=== PATIENT | male | born 1970 | race Two or more races ===

== ENCOUNTER 2016-09-23 05:21 | Inpatient (IN) | payer OTHER ==
--- NOTE | 2016-09-21 13:21 | PREOPHP ---
DATE OF ADMISSION: 09/23/2016 DATE OF SERVICE: 09/21/2016 PREOPERATIVE INTERNAL MEDICINE CONSULTATION MEDICAL HISTORY AND PHYSICAL The patient to have surgery with Dr. Obi Fuller on 09/23/2016. CONSULTATION REQUESTED: Dr. Obi Fuller for medical evaluation and clearance of a 45-year-old gentleman about to undergo surgery on his lumbar spine. Thank you, Dr. Fuller, for allowing us to participate in the care of this patient. Leander Wolf, a 45-year-old gentleman, history of back injury, currently being admitted for correction of the above. In terms of his past medical history, surgically, has had a left inguinal hernia repair, fractured his right ankle, has had no medical hospitalizations, takes no chronic medications other than currently pain medications. ALLERGIES: HE IS NOT ALLERGIC TO ANY MEDICATIONS. GENERAL HEALTH: Has been good. SOCIAL HISTORY: The patient is , has 2 daughters. He does not smoke. Alcohol socially. Does drink coffee, is employed and usually has no difficulty sleeping at night. FAMILY HISTORY: Father at age 90 of a car accident and old age. Mother 82 diabetic and alive and doing relatively well. Two siblings are healthy. There is family history of diabetes and hypertension. He knows of no heart, cancer or strokes. REVIEW OF SYSTEMS HEENT: Periodic headaches. CARDIORESPIRATORY: Denies any chest pain or shortness of breath. GASTROINTESTINAL: No melena or hematemesis. GENITOURINARY: No urgency, frequency. MUSCULOSKELETAL: Positive for back pain with radicular pain symptoms down the left side. NEUROPSYCHIATRIC: Unremarkable. GENERAL HEALTH: As above. PHYSICAL EXAMINATION: VITAL SIGNS: The patient's blood pressure was 118/60, pulse was 68 and regular , respirations were 18, temperature 98.5, height 5 foot 5 and 3/4 inches, weight 157 pounds. GENERAL: The patient was noted to be a well-developed, well-nourished male, alert and cooperative, in no apparent acute distress, oriented to time, place, and person. HEAD, EARS, EYES, NOSE AND THROAT: Head was atraumatic. Eyes: Pupils were equal, reactive to light and accommodation. Fundi were benign. Tympanic membranes were unremarkable. Nose was negative. Mouth was unremarkable. Fair oral hygiene was present. NECK: Supple without any rigidity. Trachea was midline. Thyroid was unremarkable. Neck veins were flat. Carotid pulses were equal. No bruits were heard. BACK: Unremarkable other than tenderness in the lower back. CHEST: Symmetrical. BREASTS AND AXILLARY: Did not reveal any masses. LUNGS: Clear to percussion and auscultation. HEART: PMI is fifth intercostal space at the midclavicular line. Regular sinus rhythm was noted. No significant murmurs, rubs, or gallops being elicited. ABDOMEN: Soft, good bowel sounds were noted. No significant organomegaly, masses, or tenderness. Scar from prior surgery being noted. GENITALIA: Normal male external genitalia. RECTAL AND PROSTATIC: Per PCP. EXTREMITIES: Did not reveal any clubbing, edema or cyanosis. Peripheral pulses were physiologic. SKIN: Moist and warm without any eruptions. No gross lymphadenopathy was noted. NEUROLOGIC: Grossly intact. IMPRESSION 1. Lumbar disk disease with herniation of disk, L4-L5. 2. Stable health. LABORATORY DATA: Review of laboratory and other data revealed the following: The patient's chemistry panel including electrolytes, glucose, BUN, and liver function tests were normal. CBC, UA, PT, PTT were normal as well. The patient' s EKG revealed some nonspecific changes, no acute changes being noted, and the patient's chest x-ray was within normal limits. DISCUSSION: Dr. Fuller, I see no contraindication in this patient undergoing current proposed surgery under desired form of anesthesia and feel he is a suitable candidate at this particular point in time and will follow him along with you during his stay at [facility]. . Thank you again, Dr. Fuller, for allowing us to participate in the care of this patient. Dictated By: ORLANDO HENDERSON MD with carmine during h SS/NTS Conf#: [id number] DID#: [id number] CC: OBI FULLER MD; ORLANDO HENDERSON MD;*EndCC* MTDD
[2016-09-23] VITALS (19 sets, daily range): BP systolic 112–137; BP diastolic 55–75; PULSE 56–94; RESP 15–20; Ht 165.1 cm; Wt 71.0 kg
[~2016-09-23] VITALS: Ht 165.1 cm; Wt 71.0 kg
[2016-09-23] MEDS ORDERED: SUCCINYLCHOLINE CHLORIDE 100 MG/5 ML SYG IV ONE (06:47)
[2016-09-23] MEDS ORDERED: PROPOFOL 20 ML ONE (06:47)
[2016-09-23] MEDS ORDERED: MIDAZOLAM 1 MG/ML 2 ML INJ ONE (06:47)
[2016-09-23] MEDS ORDERED: CEFAZOLIN 1 GM INJ ONE (06:48)
[2016-09-23] MEDS ORDERED: LIDOCAINE 1% (MDV) 20 ML INJ ONE (06:52)
[2016-09-23] MEDS ORDERED: CA CHLORIDE 10% 10 ML SYRINGE ONE (06:53)
[2016-09-23] MEDS ORDERED: SURGIFOAM POWDER 1 GM KIT ONE (06:53)
[2016-09-23] MEDS ORDERED: BUPIVACAINE 0.25%/EPI (SDV) 30 ML INJ ONE (06:53)
[2016-09-23] MEDS ORDERED: POLYMYXIN/BACITRACIN 1L IRRIG ONE (06:53)
[2016-09-23] MEDS ORDERED: BUPIVACAINE 0.25% (MPF) 10 ML 10 ML VIAL ONE (06:53)
[2016-09-23] MEDS ORDERED: THROMBIN 5000 UNIT VIAL ONE (06:53)
[2016-09-23] MEDS ORDERED: NEOSTIGMINE 3 MG/3 ML SYRINGE ONE (07:00)
[2016-09-23] MEDS ORDERED: GLYCOPYRROLATE 1 MG INJ ONE (07:00)
[2016-09-23] MEDS ORDERED: ROCURONIUM 50 MG INJ ONE (07:00)
[2016-09-23] MEDS ORDERED: EPHEDrine SULFATE 50 MG/5 ML SYG ONE (07:00)
--- NOTE | 2016-09-23 07:02 | HPN ---
Date/Time of Note Date/Time of Note DATE: 09/23/16 TIME: 07:01 Interval H&P Admission Note Pt. seen H&P reviewed: No system changes BELLE FULLER MD Sep 23, 2016 07:02
[2016-09-23] MEDS ORDERED: CEFAZOLIN 2 GM/50 ML (PMX) 50 ML IVPB SCH (07:30)
[2016-09-23] MEDS ORDERED: LACTATED RINGER'S 1,000 ML IV* SCH (07:30)
[2016-09-23] MEDS ORDERED: THROMBIN 5000 UNIT VIAL TOP ONE (07:35)
[2016-09-23] MEDS ORDERED: BUPIVACAINE 0.25%/EPI (SDV) 30 ML INJ INJ ONE (07:35)
[2016-09-23] MEDS ORDERED: POLYMYXIN/BACITRACIN 1L IRRIG IRR ONE (07:35)
[2016-09-23] MEDS ORDERED: PHENYLephrine (100 MCG/ML) 5ML SYG ONE (07:39)
[2016-09-23] MEDS ORDERED: DEXAMETHASONE 4 MG/ML 1 ML INJ ONE (08:10)
[2016-09-23] MEDS ORDERED: ONDANSETRON 4 MG INJ ONE (08:10)
[2016-09-23] MEDS ORDERED: FAMOTIDINE 20 MG INJ ONE (08:10)
[2016-09-23] MEDS ORDERED: MEPERIDINE 25 MG INJ IV PRN (08:30)
[2016-09-23] MEDS ORDERED: PROCHLORPERAZINE 10 MG INJ IV PRN (08:30)
[2016-09-23] MEDS ORDERED: HYDROmorphONE (0.2 MG/ML) 10ML SYG IV PRN ×2 (08:30)
[2016-09-23] MEDS ORDERED: FENTAnyl 50 MCG/ML VIAL ONE (08:45)
[2016-09-23] MEDS ORDERED: AL HYDROX/MG HYDROX/SIMETH 30 ML CUP PO PRN (09:30)
[2016-09-23] MEDS ORDERED: NALOXONE (0.4 MG/ML) INJ IV PRN (09:30)
[2016-09-23] MEDS ORDERED: HYDROmorphONE 1 MG/ML SYG IV PRN (09:30)
[2016-09-23] MEDS ORDERED: CEPASTAT LOZENGE MT PRN (09:30)
[2016-09-23] MEDS ORDERED: HYDROmorphONE 0.2 MG/ML PCA IV SCH (09:30)
[2016-09-23] MEDS ORDERED: BISACODYL 10 MG SUPP PR PRN (09:30)
[2016-09-23] MEDS ORDERED: ONDANSETRON 4 MG INJ IV PRN (09:30)
[2016-09-23] MEDS ORDERED: ACETAMINOPHEN 325 MG TAB PO PRN (09:30)
[2016-09-23] MEDS ORDERED: ZOLPIDEM 5 MG TAB PO PRN (09:30)
[2016-09-23] MEDS ORDERED: CARISOPRODOL 350 MG TAB PO PRN (09:30)
[2016-09-23] MEDS ORDERED: DIPHENHYDRAMINE 50 MG INJ IV PRN (09:30)
--- NOTE | 2016-09-23 10:17 | OPR ---
DATE OF OPERATION: 09/23/2016 PREOPERATIVE DIAGNOSES: 1. L4 to L5 stenosis with instability. 2. Central herniation L4 to L5. 3. Left radiculopathy. POSTOPERATIVE DIAGNOSES: 1. L4 to L5 stenosis with instability. 2. Central herniation L4 to L5. 3. Left radiculopathy. PROCEDURE PERFORMED: 1. Central decompressive laminectomy at L4 to L5 with decompression of L4 and L5 nerve roots for st enosis. 2. Placement of posterior interlaminar stabilization device. 3. L4 to L5 central diskectomy. 4. Use of operative microscope. 5. Use of C-arm fluoroscopy with interpretation without radiologist present. 6. Intraoperative neuromonitoring (2 hours). 7. Epidural injection via catheter. IMPLANTS: Coflex 12 mm. PRIMARY SURGEON: Obi Yap MD MARKETING PERFORMANCE ANALYST: VÍCTOR Glasgow NEED FOR CARRIER BLOWER: During this spinal surgical procedure, my family law legal assistant was used to retrac t and protect the spinal nerves and dural sac. My family law legal assistant also employed the suction catheters to evacuate blood from the surgical field to improve visualization of the neural structures. The ejrrod tant was medically necessary to facilitate the completion of the surgery in a safe and expeditious maye. State of [place] regulations, as well as hospital bylaws, preclude the use of non-license d health care personnel, such as operating room technicians, to perform these functions. FINDINGS: Neuromonitoring at the start of the case revealed bilateral L4 amplitude down 10%, left L 5 down 40%, right L5 down 50%, bilateral S1 down 40%. At the end of the case, L4 and L5 signals ret urned to normal. S1 signals remained down 30% at the end of the case bilaterally. The patient had instability at L4 to L5. ESTIMATED BLOOD LOSS: 30 mL. DRAINS: None. SPECIMENS: L4 to L5 disk was sent to pathology. COMPLICATIONS OF PROCEDURES: None. ANESTHESIOLOGIST: Parker Calvillo DO ANESTHESIA: General. INDICATIONS FOR PROCEDURE: This is a 45-year-old gentleman with back pain as well as left leg radic ulopathy. He failed nonoperative measures, therefore I recommended proceeding with the above-mentio kathya surgery. Preoperatively discussed risks, benefits, and alternatives. He understood and wished to proceed. DESCRIPTION OF PROCEDURE IN DETAIL: The patient was identified in the preoperative holding area, [facility], taken to the operating room, where he was successfully placed under general an esthesia by Dr. Calvillo. Neuromonitoring leads were placed, sequential compressive devices were ap plied. Neuromonitoring was utilized during the procedure for 2 hours to include SSEP, MEP, and EMG. Start time was 7:30 a.m., closure time was 9:30 a.m. The patient was placed on the operative tabl e in prone position over a Myles frame. All bony prominences were well padded. Back was prepped a nd draped in usual sterile fashion. Spinal needles were placed and lateral localizing films obtaine d to confirm the correct levels. Once this was confirmed, I injected the paraspinal musculature wit h 0.25% Marcaine and epinephrine. Incision was then made over the L4 to L5 level. Incision was taken down to the dorsal fascia, which was incised with Bovie cautery. I then subperiosteally dissected the L4 and L5 lamina bilaterally. Once this was done, Gokul retractors were placed. I placed a Brandin at the L4 to L5 interspin ous area and lateral films obtained to confirm the correct levels. The patient had what appeared to be an incompetent L4 to L5 interspinous ligament. He had instability at this level. Central decom pression was performed at the L4 to L5 level and I decompressed the L4 and L5 nerve roots bilaterall y and removed the ligamentum flavum centrally to decompress the central canal. Microscope was then brought in and my family law legal assistant retracted neural elements medially to midline while I made a central radha ulotomy on the left side to remove extruded fragments. This herniation was adding to the stenosis a nd was done in order to further decompress the stenosis. Once the decompression was completed, all nerve signals returned to normal. Microscope was taken off the field. The Myles frame was let dionne n. I then placed various trials and chose the 12 mm height for the Coflex. I then took the final impla nt which I impacted under C-arm imaging remaining just dorsal to the dura. I then clamped down onto the spinous process of L4 and L5. Once this was done, I took final AP and lateral images and I was happy with the placement of the posterior interlaminar stabilization device. I then irrigated the wound. Valsalva maneuver was performed and there was no leak of CSF. I passed an epidural catheter through which I injected 100 mcg of fentanyl, and the catheter was removed. The anesthesiologist d rew peripheral blood, which was spun using the [employer]an device, then took the platelet-poor plasma a nd mixed this with thrombin and injected it over the dura for hemostatic purposes. I then removed the retractor and closed the fascia with a #1 Vicryl stitch. I then closed subcutane ous tissue with a 2-0 Vicryl stitch. A 4-0 Monocryl closure was then performed. Dermabond was then applied. The patient was then awakened from anesthesia and taken to recovery room in stable condit ion. Lap, sponge, and instrument counts were correct x2. There were no apparent complications duri ng the procedure. The patient will be admitted to the orthopedic locke for routine postoperative care to include pain c ontrol, physical therapy, neurovascular checks, and antibiotics. Dictated By: OBI CHAMORRO/KAREN Conf#: [id number] DID#: [id number]
--- NOTE | 2016-09-23 11:31 | RADRPT ---
PROCEDURE: Intraoperative fluoroscopy. CLINICAL INDICATION: Intraoperative fluoroscopy during lumbar decompression. TECHNIQUE: 2 spot intraoperative fluoroscopic images were provided. The images were reviewed on a high-resolution PACS workstation. COMPARISON: None available FINDINGS: Multiple spot intraoperative fluoroscopic views were provided during lumbar spine surgery. The imag es demonstrate placement of interspinous fusion device at L4-5. The total fluoroscopy time was 11.4 -seconds. IMPRESSION: 1. Multiple spot intraoperative fluoroscopic views during lumbar surgery were provided. 2. Please see operative report of the same day for further information. RPTAT: HGAS .Neo Canela MD, Date Time Electronically viewed and signed by .Neo Canela MD, on 09/23/2016 11:31 .S/
[2016-09-23] MEDS: CEFAZOLIN 1 GM/50 ML (PMX) 50 ML IVPB SCH ×2 (14:07→19:21)
[2016-09-23] MEDS: D5W-0.45 NACL + KCL 20 MEQ 1,000 ML IV SCH ×2 (14:07→21:00)
--- NOTE | 2016-09-23 17:17 | CONS ---
DATE OF ADMISSION: 09/23/2016 DATE OF CONSULTATION: POSTOPERATIVE CONSULT FOLLOWUP The patient was seen in his room postoperatively. Patient postop lumbar spine surgery, comfortable in bed, has some difficulties with urination, but kedar dawson has been doing relatively well. VITAL SIGNS: His vital signs, the patient was afebrile. Blood pressure was 137/75, pulse was 76, r espiratory rate 17 and O2 sat 96% on room air. HEENT: Unremarkable. LUNGS: Clear. HEART: Reveals a regular rhythm. The rest of the exam is unremarkable. IMPRESSION: 1. Status post lumbar spine surgery. 2. Stable health. DISCUSSION: Plan is to follow the patient along with you during his stay at [facility]. CONDITION: Postop stable. Thank you again, Dr. Yap, for allowing us to participate in care of this patient. Dictated By: ORLANDO HENDERSON MD SS/NTS Conf#: [id number] DID#: [id number]
[2016-09-23] MEDS: DOCUSATE SODIUM 100 MG CAP PO SCH (21:00)
[2016-09-24] MEDS: D5W-0.45 NACL + KCL 20 MEQ 1,000 ML IV SCH (01:52)
[2016-09-24] MEDS: CEFAZOLIN 1 GM/50 ML (PMX) 50 ML IVPB SCH (03:03)
[2016-09-24 05:11] LABS: ADD SCAN DIFF NO
[2016-09-24 05:21] LABS: BASOPHILS % 0.1 % (0.0-2.0); EOSINOPHILS # 0.1 10^3/ul (0.0-0.5); EOSINOPHILS % 0.6 % (0.0-7.0); HEMATOCRIT 40.5 % (42.0-52.0); HEMOGLOBIN 13.5 g/dl (14.0-18.0); LYMPHOCYTES # 1.9 10^3/ul (0.8-2.9); LYMPHOCYTES % 19.5 % (15.0-51.0); MEAN CORPUSCULAR HEMOGLOBIN 30.3 pg (29.0-33.0); MEAN CORPUSCULAR HGB CONC 33.3 g/dl (32.0-37.0); MEAN CORPUSCULAR VOLUME 90.8 fl (82.0-101.0); MEAN PLATELET VOLUME 10.4 fl (7.4-10.4); MONOCYTE # 0.7 10^3/ul (0.3-0.9); MONOCYTES % 7.4 % (0.0-11.0); NEUTROPHILS % 72.1 % (39.0-77.0); PLATELET COUNT 229 10^3/UL (140-415); RED BLOOD COUNT 4.46 10^6/ul (4.70-6.10); RED CELL DISTRIBUTION WIDTH 13.2 % (11.5-14.5); WHITE BLOOD COUNT 9.7 10^3/ul (4.8-10.8)
[2016-09-24 05:27] LABS: POTASSIUM 3.6 mmol/L (3.5-5.1)
[2016-09-24 05:29] LABS: CREATININE 0.78 mg/dl (0.61-1.24)
[2016-09-24 05:30] LABS: CALCIUM 8.4 mg/dl (8.4-10.2); MAGNESIUM 1.8 mg/dl (1.7-2.5)
[2016-09-24 07:24] VITALS: BP 106/64; RESP 20
[2016-09-24] MEDS: DOCUSATE SODIUM 100 MG CAP PO SCH (09:00)
[2016-09-24] MEDS ORDERED: traMADol 50 MG TAB PO PRN (09:30)
--- NOTE | 2016-09-24 09:31 | CONS ---
DATE OF ADMISSION: 09/23/2016 DATE OF CONSULTATION: Patient had surgery 09/23/2016. HISTORY OF PRESENT ILLNESS: Patient alert, urinating better than yesterday. Had a relatively good night. PHYSICAL EXAMINATION: VITAL SIGNS: Blood pressure 105/84, pulse 67, temperature 98, respiratory rate 20, O2 saturation 99 % on room air. HEENT: Unremarkable. LUNGS: Clear. HEART: Reveals a regular rhythm. ABDOMEN: Unremarkable. IMPRESSION: 1. Status post lumbar spine surgery. 2. Stable health. DISCUSSION: Laboratory data this morning reveals a normal CBC. Patient's chemistries were normal a s well. DISCUSSION: Patient is quite stable at this particular point in time, and is urinating better and h e did yesterday, probably will do better once he stands up to go to the bathroom. Thank you again, Dr. Yap, for allowing us to participate in care of this patient. Dictated By: ORLANDO MEI/KAREN Conf#: [id number] DID#: [id number]
--- NOTE | 2016-09-24 09:46 | PN ---
Date/Time of Note Date/Time of Note DATE: 09/24/16 TIME: 09:44 Assessment/Plan Lines/Catheters IV Catheter Type (from Nrsg): Peripheral IV Roe in Place (from Nrsg): No Assessment/Plan Assessment/Plan s/p lumbar decompression - doing well stable for D/C when cleared by PT Subjective 24 Hr Interval Summary patient c/o post-operative LBP leg is feeling better able to urinate Exam/Review of Systems Vital Signs Vitals Vital Signs Date Time Temp Pulse Resp B/P Pulse Ox O2 Delivery O2 Flow Rate FiO2 09/24/16 07:24 98.0 67 20 106/64 99 09/23/16 11:25 Room Air 09/23/16 10:02 8.0 Intake and Output 09/23/16 09/23/16 09/24/16 15:00 23:00 07:00 Intake Total 1550 ml 700 ml 900 ml Output Total 30 ml 1600 ml Balance 1520 ml -900 ml 900 ml Exam Free Text/Dictation NVID AF, VSS incision C/D/I Results Result Diagram: 09/24/16 0420 09/24/16 042 TIFFANIE XIONG PA-C Sep 24, 2016 09:46
[2016-09-24] MEDS: traMADol 50 MG TAB PO PRN ×2 (09:47→13:53)
--- NOTE | 2016-09-25 07:56 | DS ---
DATE OF ADMISSION: 09/23/2016 DATE OF DISCHARGE: 09/24/2016 ADMITTING DIAGNOSIS: Spinal stenosis. DISCHARGE DIAGNOSIS: Spinal stenosis. PROCEDURE: Patient was taken to the operating room on 09/23/2016 and underwent decompression with p lacement of Coflex. HOSPITAL COURSE: The patient was admitted to the orthopedic locke after undergoing the above procedu re. His postoperative course was uncomplicated. By postoperative day 1 he was deemed stable for di shankarrmontserrat, with followup arranged with the undersigned. Dictated By: BELLE CHAMORRO/NTS Conf#: [id number] DID#: [id number]
[2016-10-05] MEDS ORDERED: traMADol 50 MG TAB PO PRN (09:30)
== END 2016-09-24 15:00 | disposition home or self-care (01) | DRG 518 ==
LOC: REC 05:21 → EDSTATUS 07:00 → MS1 10:48
PROVIDERS: ADMIT Specialist; ATTEND Specialist
PROC: 0SB40ZZ Excision of Lumbosacral Disc, Open Approach (ICD-10-PCS; 2016-09-23)
PROC: 0SH00BZ Insertion of Interspinous Process Spinal Stabilization Device into Lumbar Vertebral Joint, Open Approach (ICD-10-PCS; principal; 2016-09-23 07:00)
DX: M51.16 Intervertebral disc disorders with radiculopathy, lumbar region (principal); M53.2X6 Spinal instabilities, lumbar region; M48.06 Spinal stenosis, lumbar region
CPT/HCPCS: 72100; 80048; 83735; 85025; 86999; 97116; 97162; 97530; A4310; J0330; J0690; J1100; J1170; J2250; J2370; J2405; J2710; J3010; J3480